=== PATIENT | female | born 1950 | race American Indian/Alaskan Native ===

== ENCOUNTER 2017-08-03 11:31 | Emergency (ER) | payer SELFPAY ==
[2017-08-03] MEDS ORDERED: TYLENOL PO ONE (11:57)
[2017-08-03] MEDS ORDERED: CATAPRES PO ONE (18:14)
--- NOTE | 2017-08-03 18:15 | Emergency Department Report ---
Minor Respiratory - HPI Chief Complaint: Upper Respiratory Infection Stated Complaint: FLU LIKE SYMPTOMS Time Seen by Provider: 08/03/17 17:45 Minor Respiratory: Yes Rhinorrhea, Yes Sore Throat, Yes Able to Tolerate Fluids , Yes Cough, Yes Fever, No Ear Pain, No Sick Contacts, No Hemoptysis, No Chest Pain, No Shortness of Breath Other History: This is a 67 y.o. female presents with cough, weakness, body aches, and runny nose. Patient states she went to primary care provider Saturday and diagnosed with the flu. They sent medicine to [facility] pharmacy and they didn't receive it. She tried calling PCP but office was closed and unable to get anyone on the phone. She is wanting a prescription for flu medicine. Sudhir SOB, wheezing, and chest pain. ED Review of Systems ROS: Stated complaint: FLU LIKE SYMPTOMS Other details as noted in HPI Constitutional: see HPI, chills, fever, weakness. denies: diaphoresis ENT: congestion. denies: ear pain, throat pain, dental pain, hearing loss, epistaxis Respiratory: see HPI, cough. denies: orthopnea, shortness of breath, SOB with exertion, SOB at rest, stridor, wheezing Cardiovascular: denies: chest pain, palpitations Gastrointestinal: denies: abdominal pain, nausea, diarrhea Musculoskeletal: myalgia (generalized) Neurological: headache. denies: weakness, paresthesias ED Past Medical Hx - Past Medical History Previous Medical History?: Yes Hx Hypertension: Yes Hx Renal Disease: Yes Additional medical history: High Cholesterol - Surgical History Past Surgical History?: No - Social History Smoking Status: Never Smoker Substance Use Type: Alcohol - Medications Home Medications: Home Medications Medication Instructions Recorded Confirmed Last Taken Type Ibuprofen [Motrin] 800 mg PO Q8H PRN #20 tablet 11/17/13 Unknown Rx Benzonatate 200 mg PO TID #30 capsule 08/03/17 Unknown Rx Fluticasone [Flonase] 1 spray NS QDAY #1 bottle 08/03/17 Unknown Rx Minor Respiratory Exam - Exam General: Vital signs noted. No distress. Alert and acting appropriately. HEENT: Yes Pharyngeal Erythema, Yes Moist Mucous Membranes, Yes Rhinorrhea, No Pharyngeal Exudates, No Conjuctival Injection, No Frontal Tenderness, No Maxillary Tenderness Ear: Neither TM Bulge, Neither TM Erythema, Neither EAC Pain, Neither EAC Discharge Neck: Yes Supple, No Adenopathy Lungs: Yes Good Air Exchange, Yes Cough, No Wheezes, No Ronchi, No Stridor, No Labored Respirations, No Retractions, No Use of Accessory Muscles, No Other Abnormal Lung Sounds Heart: Yes Murmur, No Regular Abdomen: Yes Normal Bowel Sounds, No Tenderness, No Peritoneal Signs Skin: No Rash, No Edema Neurologic: Alert and oriented, no deficits. Musculoskeletal: Unremarkable. ED Course Vital Signs 08/03/17 08/03/17 11:46 12:37 Temperature 101.7 F H Pulse Rate 100 H Respiratory 16 16 Rate Blood Pressure 145/81 O2 Sat by Pulse 94 Oximetry ED Medical Decision Making - Medical Decision Making 67 y.o. female presents with flu like symptoms for 1 week. PCP diagnosed influenza on Saturday. Started on tamiflu although symptoms started last Saturday. [facility] didn't receive prescriptions. She tried contacting PCP and they where closed or out for lunch. Taking OTC medication with no relief of cough. Started on benzonatate and flonase. Instructed to start taking tylenol or ibuprofen for pain and myalgia. Discussed S/S of when to return to ER and nonpharm measures. Follow-up with PCP. Critical care attestation.: If time is entered above; I have spent that time in minutes in the direct care of this critically ill patient, excluding procedure time. ED Disposition Clinical Impression: Flu-like symptoms, Viral syndrome Disposition: TO HOME OR SELFCARE Is pt being admited?: No Does the pt Need Aspirin: No Condition: Stable Instructions: Viral Syndrome (ED), Cold Symptoms (ED), Upper Respiratory Infection (ED) Additional Instructions: Wash hands frequently. The cough can last for 2-3 weeks. Use tylenol and ibuprofen should be taken with regular fluid intake. Follow up with primary care provider. Seek medical attention if fever, headache, wheezing, or chest symptoms worsen. If drowsy or confused in the short term or if cough last longer than 4 weeks. Prescriptions: Benzonatate 200 mg PO TID #30 capsule Fluticasone [Flonase] 1 spray NS QDAY #1 bottle Referrals: ARNIE LEAVITT MD [Primary Care Provider] - 3-5 Days [facility] [Outside] - 3-5 Days [facility] [Outside] - 3-5 Days Time of Disposition: 19:49 Print Language: [id number]
[2017-08-03 20:10] VITALS: BP 114/64
== END 2017-08-03 20:10 | disposition home or self-care (01) ==
LOC: ED 11:31
DX: B34.9 Viral infection, unspecified (principal); I12.9 Hypertensive chronic kidney disease with stage 1 through stage 4 chronic kidney disease, or unspecified chronic kidney disease; N18.9 Chronic kidney disease, unspecified; E78.00 Pure hypercholesterolemia, unspecified; Z88.6 Allergy status to analgesic agent
CPT/HCPCS: 87400; 99282